=== PATIENT | female | born 1950 | race Caucasian/White ===

== ENCOUNTER 2020-04-11 20:00 | Outpatient (CLI) | payer MEDICARE, OTHER, SELFPAY | END 2020-04-11 20:01 | disposition home or self-care (01) | LOC: SLEEP 04-12 09:22 | PROVIDERS: Family Provider Nurse Practitioner; Visit Provider Nurse Practitioner | DX: R06.83 Snoring (principal); R53.83 Other fatigue | CPT/HCPCS: 95810 ==

== ENCOUNTER → 2021-10-25 09:49 | Outpatient (BNVA) | payer MEDICARE, OTHER, SELFPAY | PROVIDERS: Family Provider Nurse Practitioner; Referring Provider Physician Assistant; Visit Provider Specialist | DX: M25.562 Pain in left knee (principal) | CPT/HCPCS: 73560; 73565 ==

== ENCOUNTER 2021-10-30 12:24 | Outpatient (CLI) | payer MEDICARE, OTHER, SELFPAY ==
--- NOTE | 2021-10-30 12:45 | USCV_ITS ---
Ayan Radha Age: 71 Gender: F : 1950 Exam Date: 10/30/2021 12:48 Ordering Phys: Ann Marie Decker MD Technologist: JEFF Exam Location: [facility] [place] Indication: UNILATERAL PRIMARY OSTEOARTHRITIS, LEFT KNEE PROCEDURES: Venous duplex imaging was performed in only the left lower extremity. The following venous structures were evaluated: common femoral vein, profunda vein, proximal portion of the greater saphenous vein, superficial femoral vein, and the popliteal vein. In addition, the posterior tibial and peroneal trunk were evaluated. Serial compression, augmentation maneuvers, and spectral Doppler flow evaluation were performed. FINDINGS: Normal 2-D Doppler and augmentation and compressibility throughout the lower extremity venous structures. Additional imaging through the proximal calf veins also reveals no thrombus. Limited evaluation of the greater saphenous vein is patent with no thrombus. CONCLUSIONS No DVT left lower extremity. Dr. Darlene French DO (Electronically Signed) Final Date: 30 October 2021 13:17 S
== END 2021-10-30 12:25 | disposition home or self-care (01) ==
LOC: RAD 12:28
PROVIDERS: PCP Physician Assistant; Visit Provider Specialist
DX: M17.12 Unilateral primary osteoarthritis, left knee (principal); M79.89 Other specified soft tissue disorders
CPT/HCPCS: 93971

== ENCOUNTER 2021-11-17 12:18 | Outpatient (CLI) | payer MEDICARE, OTHER, SELFPAY ==
--- NOTE | 2021-11-17 13:00 | MR_ITS ---
WS: [id number] MRI LEFT KNEE HISTORY: M25.569 - Pain in unspecified knee COMPARISON: Knee radiograph 10/25/2021 and prior MRI 02/21/2018 Anterior cruciate ligament: Thickening and increased signal throughout the ACL consistent with mucoid degeneration. New since 2018. Posterior cruciate ligament: Intact. Medial collateral ligament: No tear. Mildly displaced from the joint line by osteophytes and partiall y extruded meniscus. Posterior lateral corner structures: Intact. Medial menisci: Again noted is a complex tear in the posterior horn extending to the inferior articul ar surface. Small caliber meniscus. Meniscal tear and abnormal signal also extends into the meniscal root. Anterior horn is negative. Lateral meniscus: Intact. Normal signal, size and shape. Extensor mechanism: Distal quadriceps tendon and patellar tendons are intact. Fluid and soft tissue: Small suprapatellar joint effusion. Small Hung's cyst. Osseous and articular structures: Patellofemoral compartment: Very mild thinning and fissuring of the cartilage. Mild chondromalacia no estephania involving the lateral facet is similar to the prior study. No marrow edema. Medial compartment: Moderate narrowing medial compartment. Near complete loss of cartilage along the weightbearing surfaces. Subchondral cystic changes along the weightbearing surface of the femoral con dyle and the medial most aspect of the tibial plateau adjacent to the MCL. Lateral compartment: Mild narrowing of the lateral compartment. No significant cartilage abnormality other than mild thinning. Moderate-sized lobulated subchondral cysts at the base of the tibial spines. MR/MR knee LT wo con* [id number] IMPRESSION: 1. Chronic complex tear posterior horn medial meniscus extending to involve th e meniscal root. 2. 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 3. Mild narrowing of the medial compartment with near complete loss of cartila ge and osteophytes. 4. Small Hung's cyst. 5. Mild chondromalacia patellofemoral compartment is unchanged.
== END 2021-11-17 12:19 | disposition home or self-care (01) ==
LOC: RAD 12:21
PROVIDERS: PCP Physician Assistant; Visit Provider Specialist
DX: M17.12 Unilateral primary osteoarthritis, left knee (principal); S83.232A Complex tear of medial meniscus, current injury, left knee, initial encounter; X58.XXXA Exposure to other specified factors, initial encounter; M71.22 Synovial cyst of popliteal space [Baker], left knee; M22.42 Chondromalacia patellae, left knee
CPT/HCPCS: 73721

== ENCOUNTER 2022-04-09 05:42 | Day surgery (SDC) | payer MEDICARE, OTHER, SELFPAY ==
[2022-04-05 12:16] VITALS: BMI 27.1
[2022-04-09 06:10] VITALS: BP 172/85; PULSE 78; RESP 16; TEMP 36.4; O2SAT 97
[2022-04-09] MEDS: sodium chloride 0.9% 1,000 ML 30 ML IV (06:16)
--- NOTE | 2022-04-09 06:58 | P.ANESASSM_ITS ---
Documented by User: Kayla Cohn CRNA 04/09/22 07:00 Pre-Anesthetic Assessment Height/Weight: Height 1.52 m Weight 63.049 kg Temp Pulse Resp BP Pulse Ox 97.6 F 78 16 172/85 97 04/09/22 06:10 04/09/22 06:10 04/09/22 06:10 04/09/22 06:10 04/09/22 06:10 Preop Diagnosis: N/V Operation Date: 04/09/22 07:00 Proposed Procedures p EGD 82286,R11.2,Z80.0(Not Applicable) - Aidan Urban MD Familial anesthetic complications: none Was Beta Aurea taken within 24 hours: N/A Was Clonidine taken within 24 hours: N/A Last intake: Intake Last Liquid Date 04/08/22 Last Liquid Time 18:30 Last Solid Date 04/08/22 Last Solid Time 18:30 Last Intake: 18:30 Social No alcohol and No tobacco Exam alert and oriented x 3 Airway Submandibular: within normal limits Cervical ROM: within normal limits Mallampati: Class II History/ROS No significant history except as noted Pulmonary None reported CV/HEM Hypertension None reported GI Gastroesophageal Reflux Disease Metabolic Diabetes Mellitus, Hyperlipidemia and Thyroid Disease (right tyroid removed) [facility] [place] Anesthetic Plan ASA status: 3 Anesthesia: Anesthesia Evaluation and MAC Risk of > 500 ml blood loss (7ml/kg in children): No Medications/Allergies Home Medications Medication Instructions Recorded Confirmed Last Taken Type amantadine HCl 100 mg capsule 100 mg PO BID 10/25/21 04/09/22 04/07/22 History aspirin 81 mg tablet,delayed 81 mg PO DAILY 10/25/21 04/05/22 04/05/22 History release blood sugar diagnostic (Precision 10/25/21 04/09/22 Unknown History Xtra Test) carbidopa ER 50 mg-levodopa 200 mg 1 tab PO TID 10/25/21 04/09/22 04/07/22 History tablet,extended release carboxymethylcellulose sodium 0.5 1 drp OPHTHALMIC (EYE) TID 10/25/21 04/09/22 04/05/22 History % eye drops in a dropperette (Refresh Plus) diltiazem HCl 240 mg capsule,24 240 mg PO DAILY 10/25/21 04/09/22 04/09/22 History hr,extended release fluticasone propionate 50 2 spray INTRANASAL DAILY 10/25/21 04/09/22 04/05/22 History mcg/actuation nasal spray,suspension levothyroxine 50 mcg tablet 50 mcg PO DAILY 10/25/21 04/09/22 04/09/22 History (Synthroid) metformin 850 mg tablet 850 mg PO BID 10/25/21 04/09/22 04/08/22 History pioglitazone 45 mg tablet (Actos) 45 mg PO DAILY 10/25/21 04/09/22 04/07/22 History ropinirole 4 mg tablet 4 mg PO DAILY 10/25/21 04/09/22 04/06/22 History solifenacin 10 mg tablet (Vesicare) 10 mg PO DAILY 10/25/21 04/09/22 04/06/22 History omeprazole 10 mg capsule,delayed 10 mg PO DAILY 03/02/22 04/09/22 04/02/22 History release eamnk-3-pst-fish oil 1 gram capsule 1 cap PO DAILY cap 03/27/22 04/05/22 04/05/22 History Allergies Allergy/AdvReac Type Severity Reaction Status Date / Time hydrochlorothiazide Allergy Severe ADR-Itching Verified 03/27/22 09:02 Current Medications Generic Name Dose Route Start Last Admin Trade Name Freq PRN Reason Stop Dose Admin Sodium Chloride 1,000 mls @ 30 mls/hr 04/09/22 06:00 04/09/22 06:16 Sodium Chloride 0.9% IV 30 mls/hr .Q24H AD Administration PFSH Anesthesia Family History (Updated 03/27/22 @ 09:12 by Laurie Davis) Other Cancer Diabetes Hypertension Social History (Updated 03/27/22 @ 09:12 by Laurie Davis) Smoking and tobacco status: never smoked Alcohol intake: never Data Anesthesia Cardiac Studies: No Data to Display
--- NOTE | 2022-04-09 07:13 | W.PM.OPSFHP ---
Same Day Surgery H&P Indication for Procedure/HPI DATE OF PROCEDURE: April 09, 2022 CHIEF COMPLAINT/INDICATIONFOR SURGICAL PROCEDURE: N/V PREOP DIAGNOSIS: N/V PLANNED PROCEDURE: Operation Date: 04/09/22 07:00 Proposed Procedures p EGD 03470,R11.2,Z80.0(Not Applicable) - Aidan Urban MD Medications/Allergies* Home Medications Medication Instructions Recorded Confirmed Type amantadine HCl 100 mg capsule 100 mg PO BID 10/25/21 04/09/22 History aspirin 81 mg tablet,delayed 81 mg PO DAILY 10/25/21 04/05/22 History release blood sugar diagnostic (Precision 10/25/21 04/09/22 History Xtra Test) carbidopa ER 50 mg-levodopa 200 mg 1 tab PO TID 10/25/21 04/09/22 History tablet,extended release carboxymethylcellulose sodium 0.5 1 drp OPHTHALMIC (EYE) TID 10/25/21 04/09/22 History % eye drops in a dropperette (Refresh Plus) diltiazem HCl 240 mg capsule,24 240 mg PO DAILY 10/25/21 04/09/22 History hr,extended release fluticasone propionate 50 2 spray INTRANASAL DAILY 10/25/21 04/09/22 History mcg/actuation nasal spray,suspension levothyroxine 50 mcg tablet 50 mcg PO DAILY 10/25/21 04/09/22 History (Synthroid) metformin 850 mg tablet 850 mg PO BID 10/25/21 04/09/22 History pioglitazone 45 mg tablet (Actos) 45 mg PO DAILY 10/25/21 04/09/22 History ropinirole 4 mg tablet 4 mg PO DAILY 10/25/21 04/09/22 History solifenacin 10 mg tablet (Vesicare) 10 mg PO DAILY 10/25/21 04/09/22 History omeprazole 10 mg capsule,delayed 10 mg PO DAILY 03/02/22 04/09/22 History release uxijc-2-siv-fish oil 1 gram capsule 1 cap PO DAILY cap 03/27/22 04/05/22 History Allergies/Adverse Reactions Allergy/AdvReac Type Severity Reaction Status Date / Time hydrochlorothiazide Allergy Severe ADR-Itching Verified 03/27/22 09:02 Current Medications: Generic Name Dose Route Start Last Admin Trade Name Freq PRN Reason Stop Dose Admin Sodium Chloride 1,000 mls @ 30 mls/hr 04/09/22 06:00 04/09/22 06:16 Sodium Chloride 0.9% IV 30 mls/hr .Q24H AD Administration Pertinent History/Comorbid Conditions* Family History (Updated 03/27/22 @ 09:12 by Laurie Davis) Diabetes Cancer Hypertension Social History Smoking and tobacco status: never smoked Alcohol intake: never Pertinent Exam Findings alert, oriented x 3, clear to auscultation bilaterally, regular rate & rhythm, operative site marked and procedure specific exam findings Recommendations Surgery/Procedure today Coding Level of Care Code Acute Room Cooler Installer for Jacqueline Durbin
[2022-04-09 07:23] VITALS: BP 122/65; PULSE 64; RESP 19; TEMP 36.2; O2SAT 93
--- NOTE | 2022-04-09 07:26 | ANE.PACU2 ---
Documented by User: Kayla Cohn CRNA 04/09/22 07:26 Inpatient post-anesthesia follow up: Airway intact: Yes Vital signs: Temperature 97.6 F Pulse Rate 78 Respiratory Rate 16 Blood Pressure 172/85 Pulse Oximetry 97 Oxygen Delivery Me thod Room Air Oxygen Flow Rate Fraction of Inspir ed Oxygen Hydration adequate: Yes Nausea and vomiting: No Pain level: 1 Mental status: Baseline
[2022-04-10 13:29] LABS: H. Pylori / CLO Test Negative
== END 2022-04-09 08:00 | disposition home or self-care (01) ==
PROVIDERS: PCP Physician Assistant; Visit Provider Internal Medicine
PROC: 0DJ08ZZ Inspection of Upper Intestinal Tract, Via Natural or Artificial Opening Endoscopic (ICD-10-PCS; CPT 43235; principal; 2022-04-09 07:00)
DX: R11.2 Nausea with vomiting, unspecified (principal); Z80.0 Family history of malignant neoplasm of digestive organs; K21.00 Gastro-esophageal reflux disease with esophagitis, without bleeding; K29.70 Gastritis, unspecified, without bleeding; I10 Essential (primary) hypertension; E11.9 Type 2 diabetes mellitus without complications; E78.5 Hyperlipidemia, unspecified; G20 Parkinson's disease
CPT/HCPCS: 43239; 87077; J2704; J7030

== ENCOUNTER 2023-02-06 13:37 | Emergency (ER) | payer MEDICARE, OTHER, SELFPAY ==
[2023-02-06 14:32] VITALS: BP 207/69; PULSE 74; RESP 16; TEMP 26.6; O2SAT 99; BMI 26.2
--- NOTE | 2023-02-06 14:38 | W.ED.FALL ---
HPI - Fall General: Chief Complaint: Fall Stated Complaint: fall, head/face injury Time Seen by Provider: 02/06/23 14:38 History of Present Illness: Ms. Botello is a 72-year-old lady presented the emergency department due to fall with facial injury. She reports history of Parkinson's and sometimes has some difficulty with balance. She was walking downstairs and misjudged a step when she fell forward striking her face. She was wearing glasses at that time which were broken against her face. She denies loss of consciousness. Today she noticed more swelling and increased pain so decided come to the emergency department. Moderate intensity pain worse with palpation and movement. No other specific changes in health, exacerbating, or alleviating factors identified. Onset (ago): hour(s) Fall from: down stairs (#) Fall witnessed: no Place fall occurred: home Loss of consciousness: None Prolonged down time: no Symptoms prior to fall: none Context: tripped/slipped Location of injury: face Review of Systems General: Reports: 10 or more systems reviewed and unremarkable except in HPI and below PFSH ED PFSH: Medical History (Updated 02/08/23 @ 22:30 by Benny Archer MD) Diabetes Essential hypertension Hyperlipidemia Hypothyroid Parkinson disease Surgical History (Updated 02/08/23 @ 22:30 by Benny Archer MD) History of hysterectomy History of knee surgery Family History (Updated 03/27/22 @ 09:12 by Laurie Davis) Other Cancer Diabetes Hypertension Social History (Updated 03/27/22 @ 09:12 by Laurie Davis) Smoking and tobacco status: never smoked Alcohol intake: never Physical Exam Const: COMMON NORMALS: alert GENERAL APPEARANCE: cooperative and well developed HENMT: COMMON NORMALS: normocephalic HEAD & SCALP: normocephalic THROAT: posterior oropharynx normal OTHER: Significant left-sided periorbital edema and ecchymosis. No waller signs or raccoon eyes. No hemotympanum. No otorrhea or rhinorrhea. Jaw alignment normal. Dentition baseline. No obvious bony step-offs. No septal hematoma. No evidence of ocular entrapment. No diplopia with EOMs or at rest. Eye: OTHER: Left conjunctiva likely traumatic injection, no obvious other abnormalities Neck/C-Spine: COMMON NORMALS: supple GENERAL: Yes trachea midline Resp: COMMON NORMALS: normal respiratory effort EFFORT & INSPECTION: Yes able to speak in complete sentences Cardio: COMMON NORMALS: regular rate and regular rhythm RATE: regular rate RHYTHM: regular rhythm GI: COMMON NORMALS: Soft to palpation PALPATION: Yes Soft to palpation and No Tenderness to palpation present (GI) PERCUSSION: normal to percussion Extremity: GENERAL: Yes normal exam except as noted and No edema Neuro: COMMON NORMALS: moves all extremities SENSORIUM/ORIENTATION: Yes alert and No Orientation impaired Psych: COMMON NORMALS: mental status grossly normal and Normal thought process present THOUGHT PROCESS: Normal thought process present Course Vital Signs: Vital signs: Vital Signs Temperature 79.9 F L 02/06/23 14:32 Pulse Rate 56 L 02/06/23 16:57 Respiratory Rate 16 02/06/23 16:57 Blood Pressure 207/69 02/06/23 14:32 Pulse Oximetry 98 02/06/23 16:57 Oxygen Delivery Me thod Room Air 02/06/23 14:32 MDM - Fall Medical Decision Making 72-year-old lady presenting due to fall with facial injury. Fall occurred last night. Exam as above with head to toe exam performed. Given provided clinical history medication for laboratory studies at this time. No acute intracranial hemorrhage or cranial fractures. Cervical spine CT without evidence of fracture. Comminuted fractures involving the left inferior orbit and inferior lamina papyracea. Patient's pain improved with analgesia. In discussion with ophthalmology on-call patient can reasonably be followed with ophthalmology for orbital fracture in the outpatient setting. Plan to treat with medication, antinausea medication, topical eyedrops, and antibiotic for sinus involvement. Sinus precautions discussed with patient. The results of ED evaluation were discussed with the patient including prescriptions and/or symptomatic cares (if applicable) including appropriate and responsible use, followup plan, and return precautions. The patient verbalized understanding and felt safe for discharge. Medical Records I reviewed the patient's medical records. Lab Data I reviewed the patient's lab results. Radiology Impressions Cervical Spine CT 02/06/23 14:47 IMPRESSION: No evidence of acute fracture or dislocation. Face CT 02/06/23 14:47 IMPRESSION: 1. Comminuted fractures involving the LEFT inferior orbit with depression measuring 5 to 6 mm. Inferior projecting fragment. 2. Herniation of intraorbital fat contents into the maxillary sinus. Tethering of the intraorbital fat. No significant entrapment of the inferior rectus which abuts the fracture. 3. In addition, fracture of the inferior lamina papyracea along the ethmoid air cells with medial herniation of intraorbital fat. 4. Blood products in the LEFT maxillary sinus. 5. Soft tissue hematoma and emphysema involving the LEFT facial soft tissues. Notified Benny Archer MD at 02/06/2023 3:[address] 02/06/23 14:47 IMPRESSION: 1. No evidence of intracranial hemorrhage or mass effect. 2. Moderate small vessel changes. Moderate parenchymal volume loss. 3. LEFT periorbital soft tissue hematoma. LEFT facial fractures will be discussed on face CT. 4. Vascular calcification. 5. No acute intracranial findings. Discharge Plan Discharge Patient Disposition: Home Clinical Impression: Fall, Blunt trauma of face, Orbital floor fracture, Orbital wall fracture Condition: Stable Prescriptions: New ondansetron 4 mg tablet,disintegrating 4 mg PO Q8H PRN (Reason: nausea and vomiting) Qty: 15 0RF oxycodone 5 mg tablet 5 mg PO Q4H PRN (Reason: pain) Qty: 10 0RF amoxicillin-pot clavulanate 875-125 mg tablet 1 tab PO BID Qty: 20 0RF erythromycin 5 mg/gram (0.5 %) ointment 1 applic ophthalmic (eye) QID Qty: 3.5 0RF No Action (DME) Precision Xtra Test Strip See Rx Instructions .Route Rx Instructions: As directed solifenacin [Vesicare] 10 mg tablet 10 mg PO DAILY pioglitazone [Actos] 45 mg tablet 45 mg PO DAILY levothyroxine [Synthroid] 50 mcg tablet 50 mcg PO DAILY metformin 850 mg tablet 850 mg PO BID fluticasone propionate 50 mcg/actuation spray,suspension 2 spray intranasal DAILY Rx Instructions: administer into each nostril diltiazem HCl 240 mg capsule,extended release 24 hr 240 mg PO DAILY carbidopa-levodopa 50-200 mg tablet extended release 1 tab PO TID Rx Instructions: divide evenly over waking hours amantadine HCl 100 mg capsule 100 mg PO BID Refresh Plus 0.5 % dropperette 1 drp ophthalmic (eye) TID aspirin 81 mg tablet,delayed release (DR/EC) 81 mg PO DAILY ropinirole 4 mg tablet 4 mg PO DAILY lhgmp-0-rkf-fish oil 1 gram capsule 1 cap PO DAILY pantoprazole 40 mg tablet,delayed release (DR/EC) 40 mg PO DAILY Qty: 90 8RF Discharge Orders: Discharge ED (Routine); Ordered 02/06/23 Ordered By: Benny Archer Referrals: Janet Gonzalez PA-C [Primary Care Provider] - Discharge Diet: Usual diet Discharge Activity: Limit activity as instructed Patient Instructions: Fractures - Orbital, Opioid Safety Activity Restrictions/Additional Instructions: Thank you for visiting the emergency department. You were seen for fall with facial injury. You were found to have an orbital floor fracture as well as a medial orbit fracture. I will prescribe oxycodone. Use this cautiously as discussed as it is an opioid. I will also prescribe antibiotics and eyedrops. You may use [id number]-vcg-[id number] medications such as acetaminophen and ibuprofen for pain however please do not exceed the daily recommended dosage as listed on the packaging and please keep in mind that many namebrand medications contain the same active ingredients. Please avoid these medications if previously instructed to do so by another physician due to other underlying medical condition. Please follow-up with [facility]. Call in the morning and let them know that I discussed your case with them for follow-up. Please follow all sinus precautions as discussed. [facility] [address] [place], [place] [id number] Please also follow-up with your primary care provider. Return to the emergency department for vision changes, uncontrolled pain, or anything else that you are concerned about and feel needs emergency department evaluation. Coding Level of Care Code ED Retail Associate Manager Bilingual for Jacqueline Durbin
--- NOTE | 2023-02-06 14:47 | CT_ITS ---
WS: [id number] CT FACIAL BONES TECHNIQUE: Noncontrast facial bones with coronal and sagittal reformatted images. CLINICAL INFORMATION: fall, facial injury COMPARISON: None. DLP: 583.[address] scans at [facility] use at least one of these dose optimization techniques: automated e xposure control; mA and/or kV adjustment per patient size (includes targeted exams where dose is matc hed to clinical indication); or iterative reconstruction. FINDINGS: Soft tissue edema overlying the LEFT orbital and facial soft tissues. Associated subcutaneous emphyse ma. Periorbital hematoma in the subcutaneous soft tissues along the lateral orbital soft tissues. Small amount of blood and fluid in the LEFT maxillary sinus. Comminuted fracture involving the inferi or LEFT orbit. Herniation of intraorbital fat. This abuts the inferior rectus without significant ent rapment. Tethering of the intraorbital fat. Orbital floor depression measures approximately 5 to 6 mm . Fracture along the inferior margin of the lamina papyracea with intraorbital fat herniation into the inferior posterior ethmoid air cells. LEFT zygoma and lateral orbit appears intact. Anterior nasal katy mackenzie appear intact. Pterygoid plates appear intact. Normal RIGHT orbit. Normal mandibular condyles. Ma stoid air cells well aerated. Normal posterior nasopharynx. CT/CT facial bones wo con* [id number] IMPRESSION: 1. Comminuted fractures involving the LEFT inferior orbit with depression belinda uring 5 to 6 mm. Inferior projecting fragment. 2. Herniation of intraorbital fat contents into the maxillary sinus. Tethering of the intraorbital fat. No significant entrapment of the inferior rectus whic h abuts the fracture. 3. In addition, fracture of the inferior lamina papyracea along the ethmoid ai r cells with medial herniation of intraorbital fat. 4. Blood products in the LEFT maxillary sinus. 5. Soft tissue hematoma and emphysema involving the LEFT facial soft tissues. Notified Benny Archer MD at 02/06/2023 3:54 PM.
--- NOTE | 2023-02-06 14:47 | CT_ITS ---
WS: [id number] CT CERVICAL TRAUMA TECHNIQUE: Noncontrast CT of the cervical spine with coronal and sagittal reformatted images. CLINICAL INFORMATION: fall, facial injury COMPARISON: None. DLP: 1304.[address] scans at [facility] use at least one of these dose optimization techniques: automated e xposure control; mA and/or kV adjustment per patient size (includes targeted exams where dose is matc hed to clinical indication); or iterative reconstruction. FINDINGS: Straightening of the normal cervical lordosis. Mild spondylitic changes. Normal craniocervical juncti on. Normal C1-C2 articulation. Dens is normal in appearance. Normal occipital condyles. No high-grade spinal canal narrowing. Normal C1 ring. No evidence of acute fracture or dislocation. Normal prevertebral soft tissues. Multinodular thyroid goiter involving the LEFT thyroid. Bulky nodul es lower pole LEFT thyroid lobe some of which are calcified. Mild LEFT to RIGHT mass effect on the tr achea. CT/CT cervical spin wo con* [id number] IMPRESSION: No evidence of acute fracture or dislocation.
--- NOTE | 2023-02-06 14:47 | CT_ITS ---
WS: [id number] CT HEAD TECHNIQUE: Noncontrast CT of the head obtained from the skullbase to the vertex. CLINICAL INFORMATION: fall, facial injury COMPARISON: None. DLP: 1304.[address] scans at [facility] use at least one of these dose optimization techniques: automated e xposure control; mA and/or kV adjustment per patient size (includes targeted exams where dose is matc hed to clinical indication); or iterative reconstruction. FINDINGS: No evidence of intracranial hemorrhage or mass effect. Ventricular system and basal cisterns are mckinley nt. Moderate small vessel changes with moderate parenchymal volume loss. No extra-axial fluid collect ions. No evidence of mass or mass effect. Vascular calcification. Paranasal sinuses and mastoid air cells are well aerated. LEFT periorbital soft tissue hematoma. LEFT facial soft tissue emphysema. LEFT facial fractures will be discussed on face CT. CT/CT head wo con* [id number] IMPRESSION: 1. No evidence of intracranial hemorrhage or mass effect. 2. Moderate small vessel changes. Moderate parenchymal volume loss. 3. LEFT periorbital soft tissue hematoma. LEFT facial fractures will be discus sed on face CT. 4. Vascular calcification. 5. No acute intracranial findings.
[2023-02-06] MEDS: ketorolac 30 mg/mL INJ 15 MG IM (16:34)
[2023-02-06 16:57] VITALS: PULSE 56; RESP 16; O2SAT 98
== END 2023-02-06 16:58 | disposition home or self-care (01) ==
PROVIDERS: Emergency Provider Emergency Medicine; PCP Physician Assistant
DX: S02.32XA Fracture of orbital floor, left side, initial encounter for closed fracture (principal); E11.9 Type 2 diabetes mellitus without complications; I10 Essential (primary) hypertension; E78.5 Hyperlipidemia, unspecified; G20 Parkinson's disease; W10.8XXA Fall (on) (from) other stairs and steps, initial encounter
CPT/HCPCS: 70450; 70486; 72125; 96372; 99284; J1885

== ENCOUNTER 2023-02-13 14:27 | Emergency (ER) | payer MEDICARE, OTHER, SELFPAY ==
[2023-02-13 14:32] VITALS: BP 155/78; PULSE 90; RESP 16; TEMP 36.8; O2SAT 97; BMI 24.7
[2023-02-13 14:36] VITALS: PULSE 73; RESP 16; O2SAT 96
--- NOTE | 2023-02-13 15:03 | XR_ITS ---
WS: [id number] Cervical spine, 4 views, 02/13/2023 Clinical Data: trauma Comparison: None. Findings: No compression fractures are seen. The disc heights are normal. There is no prevertebral so ft tissue swelling. The odontoid is unremarkable. The soft tissues of the neck and the lung apices ar e normal. There are surgical clips in the region of the right thyroid lobe. XR/XR cervical spine 3V* [id number] Impression: Negative cervical spine.
--- NOTE | 2023-02-13 15:09 | XR_ITS ---
WS: [id number] Left shoulder, 3 views, 02/13/2023 Clinical Data: fall/pain Comparison: None. Findings: No fractures or dislocations are seen. The AC joint is normal. The adjacent left clavicle, left scapu la and ribs are normal. The soft tissues are unremarkable. XR/XR shoulder LT min 2V* [id number] Impression: Negative left shoulder.
--- NOTE | 2023-02-13 15:33 | XR_ITS ---
WS: [id number] Portable AP semiupright chest, 02/13/2023 Clinical Data: dyspnea/cough Comparison: None. Findings: No nodules, masses or effusions are seen. The heart is normal. The pulmonary vascularity is not increased. No pneumonia or pneumothorax is seen. The aortic arch and descending thoracic aorta s how mild calcification and tortuosity. XR/XR chest 1V portable [id number] Impression: Atherosclerosis.
[2023-02-13 15:35] LABS: Basophils # 0.1 10^3/uL (0.0-0.1); Basophils % 0.5 %; Eosinophils # 0.2 10^3/uL (0.0-0.8); Eosinophils % 1.6 %; Hematocrit 43.9 % (37.0-47.0); Hemoglobin 14.5 g/dL (11.5-15.3); Lymphocytes # 1.7 10^3/uL (0.8-4.8); Lymphocytes % 17.7 %; Mean Corpuscular Hemoglobin 28.6 pg (28.0-34.0); Mean Corpuscular Volume 86.6 fl (81-99); Mean Platelet Volume 11.6 fL (7.4-10.4); Monocytes # 0.6 10^3/uL (0.2-0.9); Monocytes % 5.9 %; Neutrophils # 7.09 10^3/uL (1.8-7.7); Nucleated Red Blood Cells % 0 %; Platelet Count 225 10^3/cmm (130-400); Red Blood Count 5.07 10^6/uL (4.1-5.3); Red Cell Distribution Width 13.6 % (12.1-15.1); White Blood Count 9.6 10^3/uL (4.0-10.0)
--- NOTE | 2023-02-13 15:38 | W.ED.FALL ---
HPI - Fall General: Chief Complaint: Fall Stated Complaint: fall 1xweek ago, n/v and weakness Time Seen by Provider: 02/13/23 15:02 History of Present Illness: 72-year-old female fell 1 week ago has bruising on the left side of her face. She was going down some stairs slipped and fell she landed on the right side of her face and her right breast she also has some right knee pain. She has difficulty walking. She has some rib discomfort and discomfort when she takes a full breath due to the rib pain she has not had any hemoptysis. There is never any loss of consciousness. MD complaint: fall Onset (ago): week(s) (1) Fall from: down stairs (#) Fall witnessed: yes, by family Place fall occurred: home Loss of consciousness: None Prolonged down time: no Symptoms prior to fall: none Context: tripped/slipped Quality: throbbing Associated symptoms-after fall: Reports chest pain (Left chest wall particular left breast); Denies abdominal pain, confusion, difficulty walking, headache(s), hematuria, lightheadedness, neck pain, numbness, short of breath, vertigo, weakness or other Review of Systems Const: Denies: fever(s), chills, body aches, change in appetite, fatigue or malaise ENMT: Denies: throat pain, ear or mastoid pain, nasal discharge or nasal congestion Card: Reports: chest pain (Left chest wall particular left breast); Denies: lightheadedness Resp: Denies: dyspnea, productive cough or non-productive cough GI: Denies: abdominal pain : Denies: hematuria Musc: Denies: neck pain Skin/Breast: Denies: rash or pruritus Neuro: Denies: headache(s), difficulty walking, vertigo or confusion PFSH ED PFSH: Medical History Diabetes Essential hypertension Hyperlipidemia Hypothyroid Parkinson disease Surgical History History of hysterectomy History of knee surgery Family History Other Cancer Diabetes Hypertension Social History Smoking and tobacco status: never smoked Alcohol intake: never Physical Exam Const: GENERAL APPEARANCE: cooperative and comfortable ORIENTATION/CONSCIOUSNESS: Yes awake, Yes oriented to person, Yes oriented to place and Yes oriented to time HENMT: COMMON NORMALS: normocephalic and hearing grossly normal bilaterally HEAD & SCALP: normocephalic OTHER: Facial bruising. Bruising of the upper lip left of the midline Resp: COMMON NORMALS: normal respiratory effort, No retractions, No use of accessory muscles and clear to auscultation bilaterally AUSCULTATION: clear to auscultation bilaterally Cardio: COMMON NORMALS: regular rate, regular rhythm and No murmurs present (Cardio) RATE: regular rate RHYTHM: regular rhythm GI: COMMON NORMALS: Soft to palpation and No hepatosplenomegaly present AUSCULTATION: Yes normoactive bowel sounds PALPATION: Yes Soft to palpation, No Tenderness to palpation present (GI), No Guarding due to palpation present (GI) and Yes No hepatosplenomegaly present Extremity: COMMON NORMALS: normal to inspection, capillary refill normal, no clubbing, cyanosis or edema, no calf tenderness and no pedal edema Neuro: SENSORIUM/ORIENTATION: Yes oriented to person, Yes oriented to place and Yes oriented to time Skin: COMMON NORMALS: no rashes or lesions noted GENERAL SKIN EXAM: no rashes or lesions noted Course Vital Signs: Vital signs: Vital Signs Temperature 98.2 F 02/13/23 14:32 Pulse Rate 90 02/13/23 18:06 Respiratory Rate 18 02/13/23 18:06 Blood Pressure 141/70 02/13/23 18:06 Pulse Oximetry 96 02/13/23 18:06 Oxygen Delivery Me thod Room Air 02/13/23 17:06 MDM - Fall Medical Decision Making Neurologic exam normal. No focal neurologic deficits no nystagmus. Patient is still having some headache suspect from postconcussive fall. Previous CT unremarkable other than the facial fractures. Discharge home follow-up with primary care. Medical Records I reviewed the patient's medical records. Lab Data I reviewed the patient's lab results. 02/13/23 15:25 02/13/23 15:25 Radiology Impressions Cervical Spine X-Ray 02/13/23 15:03 Impression: Negative cervical spine. Shoulder X-Ray 02/13/23 15:09 Impression: Negative left shoulder. Chest X-Ray 02/13/23 15:33 Impression: Atherosclerosis. Laboratory Results WBC 9.6 10^3/uL (4.0-10.0) 02/13/23 15:25 RBC 5.07 10^6/uL (4.1-5.3) 02/13/23 15:25 Hgb 14.5 g/dL (11.5-15.3) 02/13/23 15:25 Hct 43.9 % (37.0-47.0) 02/13/23 15:25 MCV 86.6 fl (81-99) 02/13/23 15:25 MCH 28.6 pg (28.0-34.0) 02/13/23 15:25 MCHC 33.0 g/dL (30.0-36.0) 02/13/23 15:25 RDW 13.6 % (12.1-15.1) 02/13/23 15:25 Plt Count 225 10^3/cmm (130-400) 02/13/23 15:25 MPV 11.6 fL (7.4-10.4) H 02/13/23 15:25 Neut % (Auto) 74.0 % 02/13/23 15:25 Lymph % (Auto) 17.7 % 02/13/23 15:25 [place] % (Auto) 5.9 % 02/13/23 15:25 Eos % (Auto) 1.6 % 02/13/23 15:25 Baso % (Auto) 0.5 % 02/13/23 15:25 Neut # (Auto) 7.09 10^3/uL (1.8-7.7) 02/13/23 15:25 Lymph # (Auto) 1.7 10^3/uL (0.8-4.8) 02/13/23 15:25 [place] # (Auto) 0.6 10^3/uL (0.2-0.9) 02/13/23 15:25 Eos # (Auto) 0.2 10^3/uL (0.0-0.8) 02/13/23 15:25 Baso # (Auto) 0.1 10^3/uL (0.0-0.1) 02/13/23 15:25 Nucleated RBC % (auto) 0 % 02/13/23 15:25 Nucleated RBCs # 0.0 /100WBC 02/13/23 15:25 Sodium 138 mmol/L (136-145) 02/13/23 15:25 Potassium 4.1 mmol/L (3.5-5.1) 02/13/23 15:25 Chloride 100 mmol/L (98-107) 02/13/23 15:25 Carbon Dioxide 25 mmol/L (22-29) 02/13/23 15:25 Anion Gap 17.1 (5-19) 02/13/23 15:25 BUN 16 mg/dL (8-23) 02/13/23 15:25 Creatinine 0.8 mg/dL (0.5-0.9) 02/13/23 15:25 GFR Calculation Not Reportable 02/13/23 15:25 Glucose 158 mg/dL (65-115) H 02/13/23 15:25 Calculated Osmolality 290 mOsm/kg (285-295) 02/13/23 15:25 Calcium 9.8 mg/dL (8.5-10.5) 02/13/23 15:25 Urine Color Dark yellow (Yellow) 02/13/23 17:00 Urine Appearance Sl hazy (CLEAR) A 02/13/23 17:00 Urine pH 5 (5-7) 02/13/23 17:00 Ur Specific [place] 1.030 (1.005-1.030) 02/13/23 17:00 Urine Protein Trace (Negative) 02/13/23 17:00 Urine Glucose (UA) Norm (Normal) 02/13/23 17:00 Urine Ketones 1+ (Negative) H 02/13/23 17:00 Urine Blood Neg (Negative) 02/13/23 17:00 Urine Nitrate Negative (Negative) 02/13/23 17:00 Urine Bilirubin 1+ (Negative) H 02/13/23 17:00 Urine Urobilinogen 4 mg/dL (Negative) H 02/13/23 17:00 Ur Leukocyte Esterase 1+ (Negative) H 02/13/23 17:00 Urine RBC 0-4 /hpf (0-2) H 02/13/23 17:00 Urine WBC 10-15 /hpf (0-5) H 02/13/23 17:00 Ur Squamous Epith Cells 15-25 /hpf (0-5) H 02/13/23 17:00 Amorphous Sediment Not Reportable 02/13/23 17:00 Urine Bacteria Trace /hpf (NONE) 02/13/23 17:00 Urine Mucus 3+ /hpf 02/13/23 17:00 Discharge Plan Discharge Patient Disposition: Home Clinical Impression: Blunt trauma of face, Orbital floor fracture, Orbital wall fracture, Post-concussion headache, Cystitis Condition: Stable Prescriptions: No Action (DME) Precision Xtra Test Strip See Rx Instructions .Route Rx Instructions: As directed solifenacin [Vesicare] 10 mg tablet 10 mg PO DAILY pioglitazone [Actos] 45 mg tablet 45 mg PO DAILY levothyroxine [Synthroid] 50 mcg tablet 50 mcg PO DAILY metformin 850 mg tablet 850 mg PO BID fluticasone propionate 50 mcg/actuation spray,suspension 2 spray intranasal DAILY PRN (Reason: Nasal Congestion) Rx Instructions: administer into each nostril diltiazem HCl 240 mg capsule,extended release 24 hr 240 mg PO DAILY carbidopa-levodopa 50-200 mg tablet extended release 1 tab PO TID Rx Instructions: divide evenly over waking hours amantadine HCl 100 mg capsule 100 mg PO BID aspirin 81 mg tablet,delayed release (DR/EC) 81 mg PO DAILY ropinirole 4 mg tablet 4 mg PO DAILY ondansetron 4 mg tablet,disintegrating 4 mg PO Q8H PRN (Reason: nausea and vomiting) Qty: 15 0RF oxycodone 5 mg tablet 5 mg PO Q4H PRN (Reason: pain) Qty: 10 0RF erythromycin 5 mg/gram (0.5 %) ointment 1 applic ophthalmic (eye) QID Qty: 3.5 0RF pantoprazole 40 mg tablet,delayed release (DR/EC) 40 mg PO DAILY Qty: 90 8RF amoxicillin 500 mg Tablet 500 mg PO BID Discharge Orders: Discharge ED (Routine); Ordered 02/13/23 Ordered By: Williams Chaudhary Referrals: Janet Gonzalez PA-C [Primary Care Provider] - Discharge Diet: Usual diet Discharge Activity: Increase activity as tolerated Patient Instructions: Opioid Safety, Pain Management Activity Restrictions/Additional Instructions: You were seen today after a fall from a week ago. Reviewed your previous CT imaging shows a orbital fracture without entrapment. Your exam today does not show any significant worsening of symptoms. Suspect your headache is secondary to postconcussive syndrome. There are no focal neurologic deficits noted. You do have a mild cystitis but you were given amoxicillin earlier today complete that course of antibiotics follow-up as needed. Coding Level of Care Code ED [employer] for Jacqueline Durbin
[2023-02-13 15:52] LABS: Anion Gap 17.1 (5-19); Blood Urea Nitrogen 16 mg/dL (8-23); Calcium 9.8 mg/dL (8.5-10.5); Carbon Dioxide 25 mmol/L (22-29); Chloride 100 mmol/L (98-107); Creatinine Clr Calc Pharmacy 49.0314; Glucose 158 mg/dL (65-115); Osmolality Calculated 290 mOsm/kg (285-295); Potassium 4.1 mmol/L (3.5-5.1); Sodium 138 mmol/L (136-145)
[2023-02-13 17:06] VITALS: BP 141/70; PULSE 90; RESP 18; O2SAT 96
[2023-02-13 17:30] LABS: Urine Appearance SL Hazy (CLEAR); Urine Color Dark Yellow (Yellow); pH Urine 5 (5-7)
[2023-02-13 17:31] LABS: Add Urine Microscopic? YES; Bilirubin Urine 1+ (Negative); Blood Urine Neg (Negative); Glucose Urine UA Norm (Normal); Ketones Urine 1+ (Negative); Leukocyte Esterase Urine 1+ (Negative); Nitrate Urine Negative (Negative); Protein Urine Trace (Negative); Urobilinogen Urine 4 mg/dL (Negative)
[2023-02-13 17:32] LABS: Add Urine Culture? No; Bacteria Urine TRACE /hpf; Mucus Urine 3+ /hpf; RBC Urine 0-4 /hpf (0-2); Squamous Epithelial Cell Urine 15-25 /hpf (0-5)
[2023-02-13 18:06] VITALS: BP 141/70; PULSE 90; RESP 18; O2SAT 96
== END 2023-02-13 18:08 | disposition home or self-care (01) ==
PROVIDERS: Emergency Provider Family Medicine; PCP Physician Assistant
DX: S02.32XA Fracture of orbital floor, left side, initial encounter for closed fracture (principal); S02.832A Fracture of medial orbital wall, left side, initial encounter for closed fracture; W01.0XXA Fall on same level from slipping, tripping and stumbling without subsequent striking against object, initial encounter; S00.531A Contusion of lip, initial encounter; Y93.01 Activity, walking, marching and hiking; Y92.009 Unspecified place in unspecified non-institutional (private) residence as the place of occurrence of the external cause; G44.309 Post-traumatic headache, unspecified, not intractable; N30.90 Cystitis, unspecified without hematuria
CPT/HCPCS: 36415; 71045; 72040; 73030; 80048; 81001; 85025; 99285